=== PATIENT | female | born 1950 | race Caucasian/White ===

== ENCOUNTER → 2016-11-20 | Outpatient (CLI) | payer OTHER ==
--- NOTE | 2016-11-21 11:35 | US ---
EXAMINATION TYPE: US thyroid st tissue head/neck DATE OF EXAM: 11/20/2016 3:16 PM COMPARISON: NONE CLINICAL HISTORY: E07.89 Other specified disorders of thyroid. Hair loss, fatigue GLAND SIZE: Right Lobe: 4.1 x 1.6 x 1.3 cm Overall Parenchyma: heterogenous Left Lobe: 2.8 x 1.6 x 1.1 cm Overall Parenchyma: heterogeneous Isthmus Thickness: 0.1 cm NODULES RIGHT: # of nodules measured on right: 1 1. 0.8 X 0.8 x 0.6 cm hypoechoic solid nodule at the mid pole with well-defined margins. This nodu le is taller than wide and shows no intranodular vascularity. Prior size: No prior LEFT: # of nodules measured on left: 0 ISTHMUS: # of nodules measured in the isthmus: 0 Bilateral neck scanned, no evidence of lymphadenopathy. No prominent nodules seen in the left lobe. IMPRESSION: Subcentimeter thyroid nodules, consider multinodular goiter, follow-up as indicated
== END | disposition home or self-care (01) ==
LOC: RADUSWWP 14:52
PROVIDERS: ATTEND Family Medicine
DX: E04.2 Nontoxic multinodular goiter (principal)
CPT/HCPCS: 76536

== ENCOUNTER → 2018-01-27 | Outpatient (CLI) | payer MEDICARE, OTHER ==
--- NOTE | 2018-01-28 09:18 | MM ---
Reason for exam: follow-up at short interval from prior study. Last mammogram was performed 2 years ago. History: Patient is postmenopausal. Physical Findings: Nurse did not find any significant physical abnormalities on exam. MG 3D Diag Mammo W/Cad LT Spot compression CC, spot compression MLO, and LM view(s) were taken of the left breast. Prior study comparison: January 21, 2016, bilateral MG 3d diag mammo w/cad HOA. June 13, 2015, mammogram, performed at [place]. The breast tissue is heterogeneously dense. This may lower the sensitivity of mammography. There are two benign appearing round oval masses in the left upper outer quadrant posterior depth corresponding to sonographic cysts. There is a focal asymmetry upper outer quadrant at posterior depth corresponding to a suspicious sonographic finding. These results were verbally communicated with the patient and result sheet given to the patient on 01/27/18. ASSESSMENT: Suspicious, BI-RAD 4 RECOMMENDATION: Ultrasound core biopsy of the left breast. Called Arnie Harrington NP with mammographic findings and has scheduled an appointment for the patient for 01/31/18 at 10:[address] Busch. PRELIMINARY REPORT CALLED AND FAXED TO DR. BUSCH ON 01/27/18.
--- NOTE | 2018-01-28 09:20 | USB ---
Reason for exam: follow-up at short interval from prior study. History: Patient is postmenopausal. US Breast LT Left complete breast ultrasound includes all four quadrants, the retroareolar region and axilla. Finding demonstrates a 0.8 x 0.3 x 0.7cm cystic lesion at 12 o'clock, a 0.6 x 0.4 x 0.6cm cystic lesion at 2 o'clock and a 0.5 x 0.2 x 0.4cm lesion too small to characterize at 2 o'clock, suspicious for which a biopsy is recommended. These results were verbally communicated with the patient and result sheet given to the patient on 01/27/18. ASSESSMENT: Suspicious, BI-RAD 4 RECOMMENDATION: Ultrasound core biopsy of the left breast. Called Arnie Harrington NP with mammographic findings and has scheduled an appointment for the patient for 01/31/18 at 10:[address] Busch. PRELIMINARY REPORT CALLED AND FAXED TO DR. BUSCH ON 01/27/18.
== END | disposition home or self-care (01) ==
LOC: RADMAMWWP 14:22
PROVIDERS: ATTEND Nurse Practitioner Adult Health
DX: R92.8 Other abnormal and inconclusive findings on diagnostic imaging of breast (principal)
CPT/HCPCS: 77065; 76641; G0279; 77061

== ENCOUNTER → 2018-02-07 | Day surgery (SDC) | payer MEDICARE, OTHER ==
[2018-02-07 11:31] VITALS: BP 162/85; PULSE 66; RESP 16; TEMP 98.5; BMI 34.7
--- NOTE | 2018-02-07 14:27 | USB ---
EXAMINATION TYPE: US discontinued breast core LT DATE OF EXAM: 02/07/2018 CLINICAL HISTORY: 67-year-old female R92.8 abn mammogram. COMPARISON: 12/13/2017, 01/27/2018, 06/13/2015 TECHNIQUE and FINDINGS: Scanning was performed in the 2 to 3:00 position of the left breast zone B/C. A ridge of dense tissue is seen containing multiple small cysts and apparent cyst clusters. Presently , the area recommended for biopsy has the appearance of a tiny cyst cluster. The decision to defer biopsy at this time was discussed with the patient. Six-month follow-up mammogram and left breast ultrasound is recommended. IMPRESSION: BI-RADS 3 - probably benign; dense ridge of tissue containing multiple small cysts and cyst clusters. The 5 mm area recommended for biopsy upper outer left breast currently has the appearance of a tiny cyst cluster. RECOMMENDATION: 1. Six-month follow-up diagnostic left breast mammogram. 2. Six-month follow-up left breast ultrasound. Comparison should be made with the ultrasound of 2017. 3. Patient should continue monthly self breast exam. 4. This exam should not preclude additional follow-up of suspicious palpable abnormalities.
== END ==
LOC: RADUSWWP 11:11
PROVIDERS: ATTEND Surgery
DX: R92.8 Other abnormal and inconclusive findings on diagnostic imaging of breast (principal); Z53.8 Procedure and treatment not carried out for other reasons; Z88.1 Allergy status to other antibiotic agents; Z91.040 Latex allergy status; Z91.048 Other nonmedicinal substance allergy status